=== PATIENT | male | born 1955 ===

== ENCOUNTER 2021-07-11 10:00 | Observation (INO) ==
[~2021-07-11 10:00] MED LIST: Buffered Lidocaine 1% SYRIN 1 ml INTRADERM ONE; Famotidine IV 10 MG/ML 2 ml VIAL (20 mg) IV ONE; Lactated Ringers 1000 ml BAG 1,000 ML IV SCH; ceFAZolin VIAL 1 GM in NS 0.9% 50 ML 50 ML IVPB ONE
[2021-07-11] MEDS ORDERED: Propofol 10 MG/ML 20 ML BTL ONE ×4 (10:14→14:14)
[2021-07-11] MEDS ORDERED: ceFAZolin 2 GM PREMIX 2 GM/50 ML BAG ONE (10:24)
[2021-07-11] MEDS ORDERED: Famotidine IV 10 MG/ML 2 ml VIAL (20 mg) ONE (10:24)
[2021-07-11] MEDS ORDERED: hydrALAZINE 20 mg/ml 1 ML Vial IV ONE (10:27)
[2021-07-11] MEDS ORDERED: Lidocaine 2% PF 5 ML VIAL ONE (10:48)
[2021-07-11] MEDS ORDERED: ROPIVACAINE 5 MG/ML 30 ML BTL (0.5%) ONE ×2 (11:32→12:05)
[2021-07-11] MEDS ORDERED: Midazolam 2 mg/2 ml VIAL 1 mg/ml 2 ml VIAL (2 mg) ONE ×2 (11:36)
[2021-07-11] MEDS ORDERED: fentaNYL 100 mcg/2 ml 50 MCG/ML VIAL ONE (11:36)
[2021-07-11] MEDS ORDERED: Ketamine HCL 50 mg/ml 10 ml VIAL (500 MG) ONE (13:11)
[2021-07-11] MEDS ORDERED: Phenylephrine 40 mcg/mL 10mL (400mcg) SYRINGE ONE (13:30)
[2021-07-11] MEDS ORDERED: fentaNYL 100 mcg/2 ml 50 MCG/ML VIAL IV PRN (13:33)
[2021-07-11] MEDS ORDERED: Naloxone 0.4 mg VIAL 0.4 mg/ml 1 ml VIAL IV PRN (13:33)
[2021-07-11] MEDS ORDERED: Ondansetron 4 mg VIAL 2 MG/ML 2 ml VIAL IV PRN ×2 (13:33→14:23)
[2021-07-11] MEDS ORDERED: HYDROmorphone 1 MG/1 ML SYRINGE IV PRN (13:33)
[2021-07-11] MEDS ORDERED: Ondansetron 4 mg VIAL 2 MG/ML 2 ml VIAL ONE (13:47)
[2021-07-11] MEDS ORDERED: Morphine 2 MG/ML SYRINGE IV PRN (14:23)
[2021-07-11] MEDS ORDERED: Magnesium Hydroxide LIQ 30 ML UDC PO PRN (14:23)
[2021-07-11] MEDS ORDERED: Lactulose 30 ml UDC PO PRN (14:23)
[2021-07-11] MEDS ORDERED: Ondansetron ODT 4 mg TAB 4 MG TAB PO PRN (14:23)
[2021-07-11] MEDS: Lactated Ringers 1000 ml BAG 1,000 ML IV SCH (17:40)
[2021-07-11] MEDS: Magnesium Hydroxide LIQ 30 ML UDC PO SCH (20:10)
[2021-07-11] MEDS: ceFAZolin VIAL 1 GM in NS 0.9% 50 ML 50 ML IVPB SCH (21:14)
[2021-07-12] MEDS: Lactated Ringers 1000 ml BAG 1,000 ML IV SCH (04:51)
[2021-07-12] MEDS: ceFAZolin VIAL 1 GM in NS 0.9% 50 ML 50 ML IVPB SCH ×2 (04:51→13:35)
[2021-07-12 06:45] LABS: Hematocrit 37 % (42-52); Hemoglobin 12.3 g/dL (14.0-18.0); Mean Platelet Volume 7.2 fL (7.4-10.4); Platelet Count 155 10^3/uL (150-450)
[2021-07-12 07:17] LABS: Calcium 8.5 mg/dL (8.6-10.3); Potassium 4.3 mmol/L (3.5-5.0); eGFR CKD-EPI 88.3 (>60)
[2021-07-12] MEDS ORDERED: NS 0.9% 1000 ml BAG 1,000 ML IV ONE (08:18)
[2021-07-12] MEDS ORDERED: Iohexol 300 (CONTRAST) 10 ML SDV IV ONE (08:37)
[2021-07-12] MEDS: Magnesium Hydroxide LIQ 30 ML UDC PO SCH (08:57)
[2021-07-12 09:00] LABS: Albumin 3.3 g/dL (3.2-5.2); Albumin/Globulin Ratio 1.7 (1-3); Mean Corpuscular HGB Conc 33 g/dL (31-36); Mean Corpuscular Hemoglobin 31 pg (27-31); Mean Corpuscular Volume 93 fL (80-94); Red Blood Count 3.98 10^6 /uL (4.18-5.48); Red Cell Distribution Width 15 % (10-15); Total Bilirubin 0.7 mg/dL (0.2-1.0); Total Protein 5.3 g/dL (6.4-8.9); White Blood Count 9.1 10^3/uL (3.5-10.8)
[2021-07-12] MEDS ORDERED: Vitamin THERAPEUTIC TAB PO SCH (09:00)
[2021-07-12] MEDS ORDERED: Iohexol 350 (CONTRAST) 500 ML MDV IV ONE (10:06)
[2021-07-12 15:40] VITALS: BP 130/86
== END 2021-07-12 17:20 | disposition home or self-care (01) ==
LOC: OR 10:00 → SSU 10:00
PROVIDERS: ADMIT Orthopaedic Surgery Adult Reconstructive Orthopaedic Surgery; ATTEND Orthopaedic Surgery Adult Reconstructive Orthopaedic Surgery